=== PATIENT | male | born 1945 | race Caucasian/White ===

== ENCOUNTER 2022-10-29 21:56 | Inpatient (IN) | payer MEDICARE ==
[~2022-10-29] VITALS: Ht 172.7 cm; Wt 59.7 kg
--- NOTE | 2022-10-29 22:13 | NUR ---
PT IN SVT WITH HR 170 MD NICOLAS MADE AWARE. NO NEW ORDERS AT THIS TIME
[2022-10-29] MEDS ORDERED: amiodarone 150mg/dext, iso-os 100 ML IV ONE (22:35)
[2022-10-29] MEDS: amiodarone/D5 360MG/200ML BAG 200 ML IV SCH (23:15)
[2022-10-29 23:27] LABS: BASOPHILS % (AUTO) 0.3 % (0-1); EOSINOPHILS # (AUTO) 0.1 X10'3 (0-0.9); EOSINOPHILS % (AUTO) 0.3 % (0-6); HEMATOCRIT 32.8 % (42.0-52.0); HEMOGLOBIN 10.9 g/dl (14.0-17.9); LYMPHOCYTES # (AUTO) 0.8 X10'3 (1.1-4.8); LYMPHOCYTES % (AUTO) 4.9 % (21-51); MEAN CORPUSCULAR HEMOGLOBIN 30.8 PG (27.0-31.0); MEAN CORPUSCULAR HGB CONC 33.3 g/dL (33.0-36.5); MEAN CORPUSCULAR VOLUME 92.6 FL (78-98); MEAN PLATELET VOLUME 8.4 FL (7.4-10.4); MONOCYTES # (AUTO) 0.4 X10'3 (0-0.9); MONOCYTES % (AUTO) 2.6 % (2-12); NEUTROPHILS # (AUTO) 14.5 X10'3 (1.8-7.7); NEUTROPHILS % (AUTO) 91.9 % (42-75); PLATELET COUNT 363 X10'3 (140-440); RED BLOOD COUNT 3.54 X10'6 (4.70-6.10); RED CELL DISTRIBUTION WIDTH 14.4 % (11.5-14.5); WHITE BLOOD COUNT 15.8 X10'3 (4.5-11.0)
[2022-10-29 23:35] LABS: INR 1.2 INR; PROTHROMBIN TIME 12.9 SECONDS (9.0-12.0)
[2022-10-29 23:46] LABS: ALANINE AMINOTRANSFERASE 116 U/L (12-78); ALBUMIN 2.3 G/DL (3.4-5.0); ALBUMIN/GLOBULIN RATIO 0.4 (1.1-1.5); ALKALINE PHOSPHATASE 145 IU/L (46-116); ANION GAP 24 (8-16); ASPARTATE AMINO TRANSFERASE 46 U/L (10-37); BILIRUBIN,TOTAL 0.5 MG/DL (0.1-1.0); CALCIUM 9.7 MG/DL (8.5-10.1); CHLORIDE 98 MMOL/L (99-107); CREATININE 14.04 MG/DL (0.60-1.10); GLUCOSE 120 MG/DL (70-104); MAGNESIUM 2.2 MG/DL (1.5-2.4); POTASSIUM 5.4 MMOL/L (3.5-5.1); PRO BRAIN NATRIURETIC PEPTIDE 9060 PG/ML (0-450); SODIUM 135 MMOL/L (135-145); TOTAL PROTEIN 7.5 G/DL (6.4-8.2); eCRCL 4 ML/MIN; eGFR 3 ML/MIN
[2022-10-29 23:56] LABS: TOTAL CARBON DIOXIDE 13.1 MMOL/L (24-32)
[2022-10-30] VITALS (22 sets, daily range): BP systolic 95–150; BP diastolic 46–70; PULSE 76–163; RESP 15–27; TEMP 97.2–98.1; O2SAT 92–100
[2022-10-30] LABS: BLOOD UREA NITROGEN 205 MG/DL (7-18); BUN/CREATININE RATIO 14.6 (10.0-20.0)
[2022-10-30] MEDS ORDERED: normal saline 1000ml 1,000 ML IV ONE (00:55)
[2022-10-30] MEDS ORDERED: SODIUM BICARB 150mEq/D5W 1L 1,000 ML IV SCH (01:25)
[2022-10-30] MEDS ORDERED: LIDOcaine 2% 10ml TOPICAL JELLY (Urojet) TP ONE (01:40)
[2022-10-30] MEDS ORDERED: ondansetron/PF 4mg/2ml inj IV PRN (01:40)
[2022-10-30] MEDS ORDERED: PERFLUTREN PROTEIN-A MICROSPHR (Optison) 0.22 MG/ML 3ML VIAL IV PRN (01:40)
[2022-10-30] MEDS ORDERED: magnesium hydroxide 30ml (MOM) UD suspension PO PRN (01:40)
[2022-10-30] MEDS ORDERED: ipratropium/albuterol 3ml nebule NEB PRN (01:40)
[2022-10-30] MEDS ORDERED: acetaminophen 325mg tablet PO PRN ×2 (01:40)
[2022-10-30] MEDS ORDERED: morphine 4 MG/ML inj SYRINge IV PRN (01:40)
[2022-10-30] MEDS ORDERED: morphine 2 MG/ML inj. syringe IV PRN (01:40)
--- NOTE | 2022-10-30 01:46 | NUR ---
With RT for ABG
[2022-10-30 02:02] LABS: ABG BASE EXCESS -11.3 mmol/L (-2.0-2.0); ABG HCO3 11.2 mmol/L (22.0-26.0); ABG OXYGEN SATURATION 98.1 % (94-97); ABG PCO2 (T) 17.5 mmHg (35.0-48.0); ABG PH (T) 7.421 (7.340-7.440); ABG PO2 (T) 120.8 mmHg (75.0-100.0); ALLEN'S TEST Modified; FCOHb 0.2 % (0.0-3.9); FHHb 1.9 % (0.0-5.0); FMetHb 0.5 % (0.0-1.5); FO2Hb 97.4 % (94-97); MODE RA; PATIENT TEMPERATURE 36.6; TOTAL HEMOGLOBIN 10.6 G/dl (14.0-17.9)
[2022-10-30] MEDS ORDERED: LidoCAINE 2% Topical Jelly 11mL syringe TOP ONE (02:15)
[2022-10-30] MEDS: sodium bicarbonate (8.4%) inj. 150 MEQ in dextrose 5%-water 1,000 ML IV SCH ×4 (02:20→17:23)
--- NOTE | 2022-10-30 03:00 | NUR ---
rec'd pt from ER placed into bed 2007. amio not started in ER and not started in cicu as heart rate SR with PAC
[2022-10-30] MEDS: amiodarone/D5 360MG/200ML BAG 200 ML IV SCH ×2 (04:36→09:36)
[2022-10-30 05:01] LABS: BILIRUBIN,URINE NEGATIVE (Neg); CLARITY,URINE TURBID (Clear); COLOR,URINE YELLOW (Yellow); GLUCOSE, URINE NEGATIVE (Neg); KETONES,URINE NEGATIVE (Neg); LEUKOCYTE ESTERASE ,URINE LARGE (Neg); NITRITES, URINE POSITIVE (Neg); OCCULT BLOOD,URINE LARGE (Neg); PROTEIN,URINE 30 mg/dl (Neg); UROBILINOGEN,URINE 0.2 E.U/dL (0.2-1.0)
[2022-10-30 05:26] LABS: UA COLLECTION TYPE NON-SPECIFIED
[2022-10-30 05:27] LABS: WBC,URINE TNTC /HPF (0-4)
[2022-10-30 05:28] LABS: BACTERIA,URINE 4+ /HPF (Neg); RBC,URINE 20-50 /HPF (0-2)
[2022-10-30 05:29] LABS: MUCUS STRANDS NONE SEEN /LPF (Neg); SQUAMOUS EPITHELIAL CELL,UR NONE SEEN /LPF (FEW)
[2022-10-30] MEDS: pantoprazole 40mg Tablet.DR PO SCH (07:30)
[2022-10-30] MEDS: heparin, porcine 5000 units/ml vial SQ SCH ×2 (08:00→15:25)
[2022-10-30] MEDS ORDERED: NORMAL SALINE IV STA (08:05)
[2022-10-30] MEDS ORDERED: TOBRAMYCIN IV STA (08:05)
[2022-10-30] MEDS: CefTRIAXone/D5W-Rocephin 1gm 50 ML IV SCH ×2 (09:36→20:30)
[2022-10-30] MEDS ORDERED: amiodarone 200mg tablet PO ONE (09:56)
[2022-10-30] MEDS ORDERED: ringers solution, lacted 1,000 ML IV ONE ×3 (10:25→12:35)
[2022-10-30 11:11] LABS: CLARITY,URINE TURBID (Clear); COLOR,URINE STRAW (Yellow); UA COLLECTION TYPE NON-SPECIFIED
[2022-10-30 11:12] LABS: BACTERIA,URINE 3+ /HPF (Neg); SQUAMOUS EPITHELIAL CELL,UR FEW /LPF (FEW); WBC CLUMPS,URINE MANY /HPF (NEGATIVE); WBC,URINE TNTC /HPF (0-4)
--- NOTE | 2022-10-30 11:12 | NUR ---
Initial: Pt admit for severe sepsis d/t UTI and OBIE. 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 Patient's diet was advanced to renal and pt with 0% PO intake of first meal. Per discussion at [facility] pt likely will have inadequate PO intake, if this is the case recommend NGT placement for EN though will continue to monitor trends in PO intake for most appropriate nutrition intervention recommendations. LBM 10/29 per EMR. PRN bowel care available. Will continue to follow closely. Recommendations: 1) Continue renal diet 2) Monitor need for ONS/NGT placement for EN 3) Routine bowel care 4) Weekly scaled weights Addendum: 10/30/22 at [address] Amended: Links added.
[2022-10-30 11:43] LABS: ALANINE AMINOTRANSFERASE 92 U/L (12-78); ALBUMIN 1.9 G/DL (3.4-5.0); ALBUMIN/GLOBULIN RATIO 0.4 (1.1-1.5); ALKALINE PHOSPHATASE 119 IU/L (46-116); ANION GAP 23 (8-16); ASPARTATE AMINO TRANSFERASE 44 U/L (10-37); BILIRUBIN,TOTAL 0.3 MG/DL (0.1-1.0); CALCIUM 8.8 MG/DL (8.5-10.1); CHLORIDE 103 MMOL/L (99-107); CREATININE 12.07 MG/DL (0.60-1.10); GLUCOSE 167 MG/DL (70-104); POTASSIUM 4.2 MMOL/L (3.5-5.1); SODIUM 141 MMOL/L (135-145); TOTAL CARBON DIOXIDE 15.4 MMOL/L (24-32); TOTAL PROTEIN 6.7 G/DL (6.4-8.2); eCRCL 4 ML/MIN; eGFR 4 ML/MIN
[2022-10-30 11:58] LABS: TOTAL PROTEIN,URINE RANDOM 73.5 MG/DL
[2022-10-30 12:08] LABS: BLOOD UREA NITROGEN 191 MG/DL (7-18); BUN/CREATININE RATIO 15.8 (10.0-20.0)
[2022-10-30 12:24] LABS: UA EOSINOPHILS NO EOS /HPF
--- NOTE | 2022-10-30 15:45 | NUR ---
Report given to ANAID Bartlett in PCU. All questions answered. Transferred pt via bed.
--- NOTE | 2022-10-30 16:16 | NUR ---
Received patient to room 3016A via bed accompanied by x2 staff. Patient alert and oriented to self and place. Oriented patient to room and call light. Call lightplaced within patient's reach.
[2022-10-30] MEDS ORDERED: insulin Lispro (HumaLOG) vial - multi-dose SQ SCH (17:10)
[2022-10-30] MEDS ORDERED: glucagon, human recombinant 1mg kit SUBCUT PRN (17:10)
[2022-10-30] MEDS ORDERED: MESSAGE TO PHARMACY PO ONE (17:10)
[2022-10-30] MEDS ORDERED: dextrose 50%-water 50ml dispensing syringe IV PRN ×2 (17:10)
[2022-10-30] MEDS ORDERED: DEXTROSE 15 GM of carb/4 tabs (each vial/BOTTLE has 4 tablets) PO PRN ×2 (17:10)
--- NOTE | 2022-10-30 18:54 | NUR ---
Problems reprioritized. Patient report given, questions answered & plan of care reviewed with ANAID ortiz.
[2022-10-30] MEDS: amiodarone 200mg tablet PO SCH (20:30)
[2022-10-30] MEDS: tamsulosin 0.4mg capsule PO SCH (20:30)
[2022-10-30] MEDS: insulin glargine (Lantus) pen - multi-dose SQ SCH (21:00)
[2022-10-31] VITALS (17 sets, daily range): BP systolic 93–125; BP diastolic 51–64; PULSE 73–88; RESP 15–21; TEMP 97.2–97.8; O2SAT 90–99
[2022-10-31] MEDS: heparin, porcine 5000 units/ml vial SQ SCH ×3 (00:09→16:06)
[2022-10-31] MEDS: amiodarone/D5 360MG/200ML BAG 200 ML IV SCH ×2 (05:24→11:18)
--- NOTE | 2022-10-31 06:49 | NUR ---
Problems reprioritized. Patient report given, questions answered & plan of care reviewed with Amina WORRELL.
--- NOTE | 2022-10-31 07:00 | NUR ---
Patient in room U 3016. I have received report from Yomaira WORRELL and had the opportunity to ask questions and assume patient care. Pt awake and orientated to name. no distress, Call light in reach. Amio GTT running at 1 mg/Hr, Bicarb at 150 ml/hr. Addendum: 10/31/22 at 9227 by Amina Roberts RN Amended: Links added.
[2022-10-31 07:23] LABS: APTT 33 SECONDS (22-32); INR 1.3 INR; PROTHROMBIN TIME 13.3 SECONDS (9.0-12.0)
[2022-10-31 07:37] LABS: ALANINE AMINOTRANSFERASE 77 U/L (12-78); ALBUMIN 1.7 G/DL (3.4-5.0); ALBUMIN/GLOBULIN RATIO 0.4 (1.1-1.5); ALKALINE PHOSPHATASE 105 IU/L (46-116); ANION GAP 14 (8-16); ASPARTATE AMINO TRANSFERASE 41 U/L (10-37); BILIRUBIN,TOTAL 0.2 MG/DL (0.1-1.0); BLOOD UREA NITROGEN 132 MG/DL (7-18); CHLORIDE 102 MMOL/L (99-107); CREATININE 8.24 MG/DL (0.60-1.10); GLUCOSE 155 MG/DL (70-104); MAGNESIUM 1.8 MG/DL (1.5-2.4); PHOSPHORUS 5.9 MG/DL (2.3-4.5); SODIUM 142 MMOL/L (135-145); TOTAL CARBON DIOXIDE 25.9 MMOL/L (24-32); TOTAL PROTEIN 6.1 G/DL (6.4-8.2); eCRCL 6 ML/MIN; eGFR 6 ML/MIN
[2022-10-31 07:38] LABS: BASOPHILS % (AUTO) 0.4 % (0-1); EOSINOPHILS % (AUTO) 0.3 % (0-6); HEMATOCRIT 28.7 % (42.0-52.0); HEMOGLOBIN 9.7 g/dl (14.0-17.9); LYMPHOCYTES # (AUTO) 0.8 X10'3 (1.1-4.8); LYMPHOCYTES % (AUTO) 9.6 % (21-51); MEAN CORPUSCULAR HGB CONC 33.7 g/dL (33.0-36.5); MEAN PLATELET VOLUME 8.2 FL (7.4-10.4); MONOCYTES # (AUTO) 0.3 X10'3 (0-0.9); MONOCYTES % (AUTO) 3.4 % (2-12); NEUTROPHILS # (AUTO) 7.2 X10'3 (1.8-7.7); NEUTROPHILS % (AUTO) 86.3 % (42-75); PLATELET COUNT 267 X10'3 (140-440); RED BLOOD COUNT 3.12 X10'6 (4.70-6.10); RED CELL DISTRIBUTION WIDTH 14.2 % (11.5-14.5); WHITE BLOOD COUNT 8.3 X10'3 (4.5-11.0)
[2022-10-31 07:51] LABS: POTASSIUM 2.9 MMOL/L (3.5-5.1)
[2022-10-31] MEDS: amiodarone 200mg tablet PO SCH ×2 (08:00→20:47)
--- NOTE | 2022-10-31 08:48 | NUR ---
Oren Consult: Ronnie Jaramillo w/ skin intact per EMR. Addendum: 10/31/22 at [address] Amended: Links added.
[2022-10-31] MEDS: pantoprazole 40mg Tablet.DR PO SCH (09:11)
--- NOTE | 2022-10-31 09:33 | NUR ---
PAGER ID: [phone] MESSAGE: [id number] Vadim. Please call Amina Babcock regarding Amio Gtt and K= of 2.9
[2022-10-31] MEDS: CefTRIAXone/D5W-Rocephin 1gm 50 ML IV SCH ×2 (09:52→20:46)
[2022-10-31] MEDS ORDERED: potassium Cl 40MEQ/1/2NS 520ml 520 ML IV PRN ×2 (11:00→11:05)
[2022-10-31] MEDS ORDERED: potassium Cl 20 mEq SR tablet PO PRN ×3 (11:00→11:05)
[2022-10-31] MEDS ORDERED: magnesium 2GM in 50ml NS 50 ML IV PRN (11:05)
[2022-10-31] MEDS ORDERED: magnesium 4gm in 100ml NS 100 ML IV PRN (11:05)
[2022-10-31] MEDS ORDERED: magnesium Cl slow-release 64mg tablet PO PRN (11:05)
[2022-10-31] MEDS: ringers solution, lacted 1,000 ML IV SCH ×2 (11:18→17:35)
[2022-10-31] MEDS: NUT.TX.IMP.RENAL FXN,LAC-REDUC (Nepro) 237 ML VANILLA PO SCH ×2 (13:00→18:00)
[2022-10-31] MEDS: potassium Cl 20 mEq SR tablet PO PRN ×2 (13:06→21:04)
--- NOTE | 2022-10-31 14:01 | NUR ---
PRESSURE ULCER EDUCATION: DEFINITION: A pressure ulcer is an area of skin that breaks down when you stay in one position too long. The constant pressure against the skin reduces the blood flow to that area and the affected tissue dies. CAUSES: "Being bedridden or in a wheelchair "Fragile skin "Having a chronic condition, such as diabetes or vascular disease "Inability to move certain parts of your body without assistance "Older age "Incontinence of urine or stool SYMPTOMS: "A reddened area that DOES NOT turn white when pressed on - this can be the beginning of a pressure ulcer "A blister, deep sore or a crater - these can be advanced pressure ulcers FIRST AID: "Relieve the pressure on this area "Keep the area clean and dry "Call your primary doctor if you see any of the above symptoms "DO NOT massage the area "DO NOT use a donut shaped or ring shaped pillow- these actually interfere with the blood flow and cause complications PREVENTION: "Check for pressure ulcers everyday "Change position at least every two hours to relieve pressure "Use items that help relieve pressure- pillows, sheepskin, foam padding, and powders. "Keep skin clean and dry "Eat healthy well balanced meals "Exercise daily IF YOU SEE ANY OF THESE SYMPTOMS WHILE IN THE HOSPITAL - TELL YOUR NURSE IMMEDIATELY. IF YOU SEE ANY OF THESE SYMPTOMS WHILE AT HOME OR HAVE ANY QUESTIONS OR CONCERNS ABOUT PRESSURE ULCERS - CALL YOUR PRIMARY DOCTOR IMMEDIATELY. Addendum: 10/31/22 at 1401 by Yashira Pal RN Amended: Links added.
[2022-10-31] MEDS ORDERED: NO HOME MEDS (14:42)
[2022-10-31] MEDS ORDERED: amiodarone 200mg tablet PO SCH (15:55)
--- NOTE | 2022-10-31 18:44 | NUR ---
Problems reprioritized. Patient report given, questions answered & plan of care reviewed with Ramón WORRELL. Pt eating dinner, Call light in reach. Addendum: 10/31/22 at 1845 by Amina Roberts RN Amended: Links added.
[2022-10-31] MEDS: K and/or MAG REPLACEMENT MC SCH ×2 (20:00)
[2022-10-31] MEDS: famotidine 20mg tablet PO SCH (20:47)
[2022-10-31] MEDS: tamsulosin 0.4mg capsule PO SCH (20:47)
[2022-10-31] MEDS: docusate sodium 100mg/10ml UD cup PO SCH (20:48)
[2022-10-31] MEDS: insulin glargine (Lantus) pen - multi-dose SQ SCH (21:00)
[2022-11-01] VITALS (10 sets, daily range): BP systolic 103–137; BP diastolic 55–70; PULSE 74–85; RESP 16–24; TEMP 97.3–98.5; O2SAT 94–99
[2022-11-01] MEDS: potassium Cl 20 mEq SR tablet PO PRN (00:46)
[2022-11-01] MEDS: ringers solution, lacted 1,000 ML IV SCH ×4 (00:46→16:07)
[2022-11-01] MEDS: heparin, porcine 5000 units/ml vial SQ SCH ×4 (00:46→23:52)
--- NOTE | 2022-11-01 06:34 | NUR ---
Patient in room U 3016. I have received report from Ramón WORRELL and had the opportunity to ask questions and assume patient care.Pt sleeping, New air bed. No distress. Addendum: 11/01/22 at 0634 by Amina Roberts RN Amended: Links added.
[2022-11-01] MEDS: K and/or MAG REPLACEMENT MC SCH ×4 (08:00→19:50)
[2022-11-01] MEDS: CefTRIAXone/D5W-Rocephin 1gm 50 ML IV SCH (08:13)
[2022-11-01] MEDS: amiodarone 200mg tablet PO SCH (08:15)
[2022-11-01] MEDS: docusate sodium 100mg/10ml UD cup PO SCH ×2 (08:15→20:00)
[2022-11-01] MEDS: famotidine 20mg tablet PO SCH (08:15)
[2022-11-01] MEDS: NUT.TX.IMP.RENAL FXN,LAC-REDUC (Nepro) 237 ML VANILLA PO SCH ×3 (08:16→18:00)
[2022-11-01 08:17] LABS: BASOPHILS # (AUTO) 0.1 X10'3 (0-0.2); EOSINOPHILS # (AUTO) 0.1 X10'3 (0-0.9); EOSINOPHILS % (AUTO) 1.5 % (0-6); HEMATOCRIT 28.3 % (42.0-52.0); HEMOGLOBIN 9.7 g/dl (14.0-17.9); LYMPHOCYTES # (AUTO) 0.9 X10'3 (1.1-4.8); LYMPHOCYTES % (AUTO) 12.8 % (21-51); MEAN CORPUSCULAR HEMOGLOBIN 31.7 PG (27.0-31.0); MEAN CORPUSCULAR HGB CONC 34.3 g/dL (33.0-36.5); MEAN CORPUSCULAR VOLUME 92.6 FL (78-98); MEAN PLATELET VOLUME 8.4 FL (7.4-10.4); MONOCYTES # (AUTO) 0.2 X10'3 (0-0.9); MONOCYTES % (AUTO) 3.1 % (2-12); NEUTROPHILS # (AUTO) 5.5 X10'3 (1.8-7.7); NEUTROPHILS % (AUTO) 81.6 % (42-75); PLATELET COUNT 242 X10'3 (140-440); RED BLOOD COUNT 3.05 X10'6 (4.70-6.10); RED CELL DISTRIBUTION WIDTH 14.3 % (11.5-14.5); WHITE BLOOD COUNT 6.7 X10'3 (4.5-11.0)
[2022-11-01 08:29] LABS: ALANINE AMINOTRANSFERASE 161 U/L (12-78); ALBUMIN 1.6 G/DL (3.4-5.0); ALBUMIN/GLOBULIN RATIO 0.4 (1.1-1.5); ALKALINE PHOSPHATASE 122 IU/L (46-116); ANION GAP 7 (8-16); ASPARTATE AMINO TRANSFERASE 159 U/L (10-37); BILIRUBIN,TOTAL 0.2 MG/DL (0.1-1.0); BLOOD UREA NITROGEN 90 MG/DL (7-18); BUN/CREATININE RATIO 16.5 (10.0-20.0); CALCIUM 7.7 MG/DL (8.5-10.1); CHLORIDE 104 MMOL/L (99-107); CREATININE 5.44 MG/DL (0.60-1.10); GLUCOSE 103 MG/DL (70-104); MAGNESIUM 1.5 MG/DL (1.5-2.4); PHOSPHORUS 3.8 MG/DL (2.3-4.5); POTASSIUM 3.5 MMOL/L (3.5-5.1); SODIUM 139 MMOL/L (135-145); TOTAL CARBON DIOXIDE 27.7 MMOL/L (24-32); TOTAL PROTEIN 5.9 G/DL (6.4-8.2); eCRCL 10 ML/MIN; eGFR 10 ML/MIN
[2022-11-01 08:46] LABS: APTT 32 SECONDS (22-32); INR 1.2 INR; PROTHROMBIN TIME 12.4 SECONDS (9.0-12.0)
[2022-11-01] MEDS ORDERED: cefepime 1GM/NS ADD-VANTAGE 100 ML IV SCH (08:55)
[2022-11-01] MEDS: cefepime inj. 0.5 GM in normal saline 100ml IV soln 105 ML IV SCH (09:46)
[2022-11-01 11:01] LABS: % FREE PSA 8.4 % (.); PROSTATE SPECIFIC AG, SERUM 3.1 ng/mL (0.0-4.0); PSA, FREE 0.26 ng/mL
--- NOTE | 2022-11-01 13:21 | NUR ---
F/u 11/01: Pt continues on a renal diet now pureed per physician on 10/31 for dinner per EMR. PO intake of 18% x 5 meals including 3 documented 0% for the last 3 meals. Pt with Nepro TIDWM on order though just received first one for breakfast today documented 100% intake of first ONS. Will monitor PO trend with new pureed texture and ONS intake trend and make recommendations as appropriate. LBM on 11/01 with documented diarrhea though receiving routine colace per EMR. Will continue to monitor and make recommendations as appropriate. Recommendations: 1) Continue renal diet/pureed diet per physician 2)consider liberalizing to regular if medically able if poor PO intake perist/NGT placement for EN 3) Continue Nepro TIDWM 4) Routine bowel care 5) Weekly scaled weights Addendum: 11/01/22 at [address] Amended: Links added.
[2022-11-01] MEDS ORDERED: famotidine 20mg tablet PO SCH (15:49)
[2022-11-01] MEDS ORDERED: ondansetron 4mg rapidly disintigrating tab PO PRN (16:05)
--- NOTE | 2022-11-01 18:23 | NUR ---
Problems reprioritized. Patient report given, questions answered & plan of care reviewed with Ramón WORRELL. pt eating dinner, No distress, call light in reach.. Addendum: 11/01/22 at 1824 by Amina Roberts RN Amended: Links added.
[2022-11-01] MEDS: tamsulosin 0.4mg capsule PO SCH (20:27)
[2022-11-01] MEDS: insulin glargine (Lantus) pen - multi-dose SQ SCH (21:00)
[2022-11-02] VITALS (10 sets, daily range): BP systolic 117–142; BP diastolic 59–68; PULSE 70–86; RESP 12–27; TEMP 97.7–98.5; O2SAT 77–100
[2022-11-02] MEDS: ringers solution, lacted 1,000 ML IV SCH ×4 (05:13→23:52)
--- NOTE | 2022-11-02 06:28 | NUR ---
Patient in room PCU 3016. I have received report from Ramón WORRELL and had the opportunity to ask questions and assume patient care. Pt alert . No complaints. call light and lab alonso at bedside. Addendum: 11/02/22 at 0630 by Amina Roberts RN Amended: Links added.
[2022-11-02 07:13] LABS: BASOPHILS # (AUTO) 0.1 X10'3 (0-0.2); EOSINOPHILS # (AUTO) 0.2 X10'3 (0-0.9); EOSINOPHILS % (AUTO) 2.1 % (0-6); HEMATOCRIT 30.1 % (42.0-52.0); HEMOGLOBIN 10.1 g/dl (14.0-17.9); LYMPHOCYTES # (AUTO) 1.2 X10'3 (1.1-4.8); LYMPHOCYTES % (AUTO) 14.7 % (21-51); MEAN CORPUSCULAR HEMOGLOBIN 31.3 PG (27.0-31.0); MEAN CORPUSCULAR HGB CONC 33.5 g/dL (33.0-36.5); MEAN CORPUSCULAR VOLUME 93.3 FL (78-98); MEAN PLATELET VOLUME 8.1 FL (7.4-10.4); MONOCYTES # (AUTO) 0.3 X10'3 (0-0.9); MONOCYTES % (AUTO) 3.6 % (2-12); NEUTROPHILS # (AUTO) 6.7 X10'3 (1.8-7.7); NEUTROPHILS % (AUTO) 78.6 % (42-75); PLATELET COUNT 279 X10'3 (140-440); RED BLOOD COUNT 3.23 X10'6 (4.70-6.10); RED CELL DISTRIBUTION WIDTH 14.5 % (11.5-14.5); WHITE BLOOD COUNT 8.5 X10'3 (4.5-11.0)
[2022-11-02 07:23] LABS: APTT 33 SECONDS (22-32); INR 1.2 INR; PROTHROMBIN TIME 12.4 SECONDS (9.0-12.0)
[2022-11-02] MEDS: cefepime inj. 0.5 GM in normal saline 100ml IV soln 105 ML IV SCH (07:33)
[2022-11-02] MEDS: docusate sodium 100mg/10ml UD cup PO SCH ×2 (07:37→20:26)
[2022-11-02] MEDS: heparin, porcine 5000 units/ml vial SQ SCH ×2 (07:38→16:23)
[2022-11-02 07:57] LABS: ALANINE AMINOTRANSFERASE 233 U/L (12-78); ALBUMIN 1.7 G/DL (3.4-5.0); ALBUMIN/GLOBULIN RATIO 0.4 (1.1-1.5); ALKALINE PHOSPHATASE 134 IU/L (46-116); ANION GAP 7 (8-16); ASPARTATE AMINO TRANSFERASE 191 U/L (10-37); BILIRUBIN,TOTAL 0.3 MG/DL (0.1-1.0); BLOOD UREA NITROGEN 69 MG/DL (7-18); BUN/CREATININE RATIO 17.6 (10.0-20.0); CALCIUM 7.8 MG/DL (8.5-10.1); CHLORIDE 107 MMOL/L (99-107); CREATININE 3.91 MG/DL (0.60-1.10); GLUCOSE 96 MG/DL (70-104); MAGNESIUM 1.4 MG/DL (1.5-2.4); PHOSPHORUS 2.7 MG/DL (2.3-4.5); POTASSIUM 3.5 MMOL/L (3.5-5.1); SODIUM 141 MMOL/L (135-145); THYROID STIMULATING HORMONE 2.32 ulU/ml (0.34-4.50); TOTAL CARBON DIOXIDE 27.4 MMOL/L (24-32); TOTAL PROTEIN 6.2 G/DL (6.4-8.2); eCRCL 13 ML/MIN; eGFR 15 ML/MIN
[2022-11-02] MEDS: K and/or MAG REPLACEMENT MC SCH ×4 (08:00→20:00)
[2022-11-02] MEDS: NUT.TX.IMP.RENAL FXN,LAC-REDUC (Nepro) 237 ML VANILLA PO SCH ×3 (08:00→18:00)
--- NOTE | 2022-11-02 18:25 | NUR ---
Problems reprioritized. Patient report given, questions answered & plan of care reviewed with Alea GOETZ. Pt eating dinner watching TV. Call light in reach. Addendum: 11/02/22 at 1825 by Amina Roberts RN Amended: Links added.
[2022-11-02] MEDS: tamsulosin 0.4mg capsule PO SCH (20:26)
[2022-11-02] MEDS: insulin glargine (Lantus) pen - multi-dose SQ SCH (21:00)
[2022-11-03] VITALS (10 sets, daily range): BP systolic 114–126; BP diastolic 55–68; PULSE 50–81; RESP 16–20; TEMP 97.4–98.6; O2SAT 91–100
[2022-11-03] MEDS: heparin, porcine 5000 units/ml vial SQ SCH ×3 (00:32→17:57)
--- NOTE | 2022-11-03 02:50 | NUR ---
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
[2022-11-03] MEDS: ringers solution, lacted 1,000 ML IV SCH (04:59)
[2022-11-03 06:21] LABS: BASOPHILS # (AUTO) 0.1 X10'3 (0-0.2); BASOPHILS % (AUTO) 1.4 % (0-1); EOSINOPHILS # (AUTO) 0.2 X10'3 (0-0.9); EOSINOPHILS % (AUTO) 2.7 % (0-6); HEMATOCRIT 28.2 % (42.0-52.0); HEMOGLOBIN 9.6 g/dl (14.0-17.9); LYMPHOCYTES # (AUTO) 1.4 X10'3 (1.1-4.8); LYMPHOCYTES % (AUTO) 17.7 % (21-51); MEAN CORPUSCULAR HEMOGLOBIN 31.5 PG (27.0-31.0); MEAN CORPUSCULAR VOLUME 92.7 FL (78-98); MEAN PLATELET VOLUME 7.7 FL (7.4-10.4); MONOCYTES # (AUTO) 0.3 X10'3 (0-0.9); MONOCYTES % (AUTO) 3.4 % (2-12); NEUTROPHILS # (AUTO) 5.8 X10'3 (1.8-7.7); NEUTROPHILS % (AUTO) 74.8 % (42-75); PLATELET COUNT 247 X10'3 (140-440); RED BLOOD COUNT 3.04 X10'6 (4.70-6.10); RED CELL DISTRIBUTION WIDTH 14.7 % (11.5-14.5); WHITE BLOOD COUNT 7.7 X10'3 (4.5-11.0)
[2022-11-03 06:37] LABS: APTT 32 SECONDS (22-32); INR 1.1 INR; PROTHROMBIN TIME 11.9 SECONDS (9.0-12.0)
[2022-11-03 06:53] LABS: ALANINE AMINOTRANSFERASE 193 U/L (12-78); ALBUMIN 1.6 G/DL (3.4-5.0); ALBUMIN/GLOBULIN RATIO 0.4 (1.1-1.5); ALKALINE PHOSPHATASE 123 IU/L (46-116); ANION GAP 7 (8-16); ASPARTATE AMINO TRANSFERASE 137 U/L (10-37); BILIRUBIN,TOTAL 0.3 MG/DL (0.1-1.0); BLOOD UREA NITROGEN 52 MG/DL (7-18); BUN/CREATININE RATIO 18.1 (10.0-20.0); CALCIUM 7.6 MG/DL (8.5-10.1); CHLORIDE 106 MMOL/L (99-107); CREATININE 2.87 MG/DL (0.60-1.10); GLUCOSE 97 MG/DL (70-104); MAGNESIUM 2.3 MG/DL (1.5-2.4); PHOSPHORUS 2.1 MG/DL (2.3-4.5); POTASSIUM 3.4 MMOL/L (3.5-5.1); SODIUM 139 MMOL/L (135-145); TOTAL CARBON DIOXIDE 25.6 MMOL/L (24-32); TOTAL PROTEIN 6.1 G/DL (6.4-8.2); eCRCL 18 ML/MIN; eGFR 21 ML/MIN
[2022-11-03] MEDS: cefepime inj. 0.5 GM in normal saline 100ml IV soln 105 ML IV SCH (08:00)
[2022-11-03] MEDS: K and/or MAG REPLACEMENT MC SCH ×4 (08:00→20:00)
[2022-11-03] MEDS: NUT.TX.IMP.RENAL FXN,LAC-REDUC (Nepro) 237 ML VANILLA PO SCH ×3 (08:48→17:55)
[2022-11-03] MEDS: potassium Cl 20 mEq SR tablet PO PRN (10:47)
[2022-11-03] MEDS: docusate sodium 100mg/10ml UD cup PO SCH ×2 (10:48→20:00)
[2022-11-03] MEDS ORDERED: potassium Cl 40MEQ/1/2NS 520ml 520 ML IV PRN (16:25)
[2022-11-03] MEDS ORDERED: potassium Cl 20 mEq SR tablet PO PRN ×2 (16:25)
[2022-11-03] MEDS ORDERED: magnesium 4gm in 100ml NS 100 ML IV PRN (16:25)
[2022-11-03] MEDS ORDERED: magnesium 2GM in 50ml NS 50 ML IV PRN (16:25)
[2022-11-03] MEDS: tamsulosin 0.4mg capsule PO SCH (20:20)
[2022-11-03] MEDS: insulin glargine (Lantus) pen - multi-dose SQ SCH (20:21)
[2022-11-04] MEDS: heparin, porcine 5000 units/ml vial SQ SCH ×2 (00:18→08:56)
[2022-11-04] MEDS: ringers solution, lacted 1,000 ML IV SCH ×2 (00:18→05:52)
[2022-11-04 06:38] LABS: BASOPHILS # (AUTO) 0.1 X10'3 (0-0.2); BASOPHILS % (AUTO) 1.2 % (0-1); EOSINOPHILS # (AUTO) 0.2 X10'3 (0-0.9); EOSINOPHILS % (AUTO) 2.4 % (0-6); HEMATOCRIT 27.6 % (42.0-52.0); HEMOGLOBIN 9.4 g/dl (14.0-17.9); LYMPHOCYTES # (AUTO) 1.7 X10'3 (1.1-4.8); LYMPHOCYTES % (AUTO) 18.5 % (21-51); MEAN CORPUSCULAR HEMOGLOBIN 31.6 PG (27.0-31.0); MEAN CORPUSCULAR HGB CONC 33.9 g/dL (33.0-36.5); MEAN CORPUSCULAR VOLUME 93.2 FL (78-98); MEAN PLATELET VOLUME 7.9 FL (7.4-10.4); MONOCYTES # (AUTO) 0.4 X10'3 (0-0.9); MONOCYTES % (AUTO) 4.5 % (2-12); NEUTROPHILS # (AUTO) 6.6 X10'3 (1.8-7.7); NEUTROPHILS % (AUTO) 73.4 % (42-75); PLATELET COUNT 259 X10'3 (140-440); RED BLOOD COUNT 2.96 X10'6 (4.70-6.10); RED CELL DISTRIBUTION WIDTH 15.2 % (11.5-14.5)
[2022-11-04 06:45] LABS: APTT 33 SECONDS (22-32); INR 1.1 INR
[2022-11-04 06:58] LABS: ALANINE AMINOTRANSFERASE 163 U/L (12-78); ALBUMIN 1.6 G/DL (3.4-5.0); ALBUMIN/GLOBULIN RATIO 0.4 (1.1-1.5); ALKALINE PHOSPHATASE 124 IU/L (46-116); ANION GAP 8 (8-16); ASPARTATE AMINO TRANSFERASE 104 U/L (10-37); BILIRUBIN,TOTAL 0.3 MG/DL (0.1-1.0); BLOOD UREA NITROGEN 42 MG/DL (7-18); BUN/CREATININE RATIO 17.6 (10.0-20.0); CALCIUM 7.6 MG/DL (8.5-10.1); CHLORIDE 108 MMOL/L (99-107); CREATININE 2.39 MG/DL (0.60-1.10); GLUCOSE 95 MG/DL (70-104); MAGNESIUM 1.9 MG/DL (1.5-2.4); POTASSIUM 3.8 MMOL/L (3.5-5.1); SODIUM 138 MMOL/L (135-145); TOTAL CARBON DIOXIDE 22.2 MMOL/L (24-32); TOTAL PROTEIN 6.1 G/DL (6.4-8.2); eCRCL 22 ML/MIN; eGFR 27 ML/MIN
[2022-11-04 07:00] VITALS: BP 112/60; PULSE 50; RESP 18; TEMP 99.7; O2SAT 92
[2022-11-04 07:07] LABS: PROTHROMBIN TIME 11.9 SECONDS (9.0-12.0)
[2022-11-04 08:00] VITALS: RESP 17; O2SAT 97
[2022-11-04] MEDS: K and/or MAG REPLACEMENT MC SCH ×2 (08:00)
[2022-11-04] MEDS: cefepime inj. 0.5 GM in normal saline 100ml IV soln 105 ML IV SCH (08:56)
[2022-11-04] MEDS: docusate sodium 100mg/10ml UD cup PO SCH (08:56)
[2022-11-04] MEDS: NUT.TX.IMP.RENAL FXN,LAC-REDUC (Nepro) 237 ML VANILLA PO SCH (08:56)
[2022-11-04 11:00] VITALS: BP 126/66; PULSE 83; RESP 18; TEMP 97.9; O2SAT 100
--- NOTE | 2022-11-04 14:34 | NUR ---
F/u 11/04: Pt continues on a pureed renal diet per physician with documented average PO intake of 86%x 7 meals including 100%s for 6 meals. Pt continues receiving Nepro TIDWM with average intake of 67% x 9 ONS. PO and ONS combined met 100% of estimated kcal needs and protein needs. If adequate PO intake persist will monitor need for ONS. LBM on 10/31 receiving routine bowel care and PRN MoM on 10/31 per EMR. Will continue to monitor and make recommendations as appropriate. Recommendations: 1) liberalized from renal/pureed to regular pureed given low phos and K is WNL 2) Continue Nepro TIDWM; monitor need to discontinue if adequate PO intake persist 3) Routine bowel care 4) Weekly scaled weights Addendum: 11/04/22 at [address] Amended: Links added.
[2022-11-05 09:44] LABS: HBSAG SCREEN Negative (Negative); HEP A AB, IGM Negative (Negative); HEP B CORE AB, IGM Negative (Negative); HEPATITIS C VIRUS ANTIBODY Non Reactive (Non Reactive)
== END 2022-11-04 17:20 | DRG 871 ==
LOC: ER 21:57 → ED HOLD 10-30 02:08 → EDBEDREQ 10-30 02:31 → CICU 2S 10-30 03:00 → PCU 3S 10-30 15:57
PROVIDERS: ADMIT Surgery; ATTEND Surgery
DX: A41.9 Sepsis, unspecified organism (principal); E43 Unspecified severe protein-calorie malnutrition; N17.0 Acute kidney failure with tubular necrosis; N39.0 Urinary tract infection, site not specified; E87.20 Acidosis, unspecified; N13.8 Other obstructive and reflux uropathy; N40.1 Benign prostatic hyperplasia with lower urinary tract symptoms; I48.0 Paroxysmal atrial fibrillation; D63.8 Anemia in other chronic diseases classified elsewhere; R73.9 Hyperglycemia, unspecified; N18.9 Chronic kidney disease, unspecified; E87.5 Hyperkalemia; R65.20 Severe sepsis without septic shock; E87.6 Hypokalemia; R74.01 Elevation of levels of liver transaminase levels; T46.2X5A Adverse effect of other antidysrhythmic drugs, initial encounter; Y92.238 Other place in hospital as the place of occurrence of the external cause; B95.2 Enterococcus as the cause of diseases classified elsewhere; Z59.00 Homelessness unspecified; Z79.899 Other long term (current) drug therapy; Z68.20 Body mass index [BMI] 20.0-20.9, adult
CPT/HCPCS: 36415; 36600; 71045; 76700; 80053; 80069; 80074; 81001; 82570; 82803; 82948; 83036; 83605; 83735; 83880; 84145; 84153; 84154; 84156; 84300; 84443; 84484; 85018; 85025; 85610; 85730; 87077; 87081; 87088; 87186; 87207; 87880; 93005; 93308; 93975; 94760; 96374; 97116; 97161; 97530; 99291; A4615; A6213; G0378; J0282; J0692; J0696; J1644; J1815; J3260; J3475; J3490; J7030; J7040; J7070; J7120